=== PATIENT | female | born 1945 | race African-American/Black ===

== ENCOUNTER 2018-12-03 09:02 | Emergency (ER) | payer OTHER ==
[~2018-12-03] VITALS: Ht 157.5 cm; Wt 69.9 kg
[~2018-12-03 09:02] MED LIST: BAY PO; BG MC; COL100 PO; FER300 PO; GLU500 PO; METOPROLOL TART25 M1 PO; PRI20 PO; VITC PO; ZES10 PO; ZOC10 PO
[2018-12-03 09:05] VITALS: Ht 157.5 cm; Wt 69.9 kg
[2018-12-03 10:04] LABS: BASOPHIL % 0.4 % (0-2); CALCIUM 9.1 mg/dL (8.5-10.1); CARBON DIOXIDE 30.8 mmol/L (21-32); CHLORIDE SERUM 105 mmol/L (98-107); CREATININE SERUM 0.9 mg/dL (0.6-1.0); GLUCOSE SERUM 87 mg/dL (74-106); PLATELET COUNT 399 x10^3mcL (130-400); POTASSIUM SERUM 4.1 mmol/L (3.5-5.1); SODIUM SERUM 141 mmol/L (136-145)
[2018-12-03 10:09] LABS: ALBUMIN 3.3 g/dL (3.4-5.0); ALKALINE PHOSPHATASE 74 U/L (46-116); ALT/SGPT 14 U/L (14-59); AST/SGOT 14 U/L (15-37); BILIRUBIN TOTAL 0.6 mg/dL (0.20-1.00); TOTAL PROTEIN, SERUM 7.4 g/dL (6.4-8.2)
[2018-12-03 11:21] VITALS: BP 128/71
== END 2018-12-03 11:21 | disposition home or self-care (01) ==
LOC: ED 09:02
PROVIDERS: Emergency Medicine
DX: J20.9 Acute bronchitis, unspecified (principal); Z88.1 Allergy status to other antibiotic agents; Z98.890 Other specified postprocedural states; Z85.3 Personal history of malignant neoplasm of breast
CPT/HCPCS: 36415; 83880; Q0092